=== PATIENT | female | born 1965 | race Caucasian/White ===

== ENCOUNTER 2018-05-05 19:13 | Emergency (ER) | payer BC ==
--- OUTSIDE RECORDS SUMMARY | 2018-05-05 19:24 | XMS REPORT ---
:1965 External Reference #:[id number] Demographics Address [birth year][address] [address] Home Phone [phone] Email Address Preferred Language Marshallese Marital Status Declined to Specify/Unknown Mandaen Affiliation Unknown Race White Ethnic Group Declined to Specify/Unknown Author Organization [facility] Address [address], [address] [place] [address] Phone [phone] Care Team Providers Name Role Phone Dalia Fitzgerald PA Care Team Information Bed Placement Coordinator Unavailable Dalia Fitzgerald PA Primary Care Physician Unavailable Payers Type Date Identification Numbers Payment Provider Subscriber Commercial Policy Number: [id number] [facility] Loida Sanz PayID: [id number] [address] [place] [address] Problems Date Description Provider Status Onset: 03/09/2018 Anxiety state DUARN Rothman Active Family History Date Family Member(s) Problem(s) Comments Father Heart Disease : (age 85 Father due to Cancer Years) Father Arthritis Father Gout Mother Anxiety : (age 89 Mother due to Heart Disease Years) Mother Hypertension Mother Heart Disease : (age 45 Paternal Grandfather due to Heart Disease Years) : (age 90 Paternal Grandmother due to Natural Causes Years) : (age 50 Maternal Grandfather due to Heart Attack Years) Maternal Grandmother Diabetes : (age 85 Maternal Grandmother due to Natural Causes Years) Social History Type Date Description Comments Lives With Alone Diet Healthy, Well Balanced Occupation Currently Working [employer] ADL's/IADL's Independent with all ADL's Cigarette Use Former Cigarette Smoker Quit December 2016, most recently. ETOH Use Currently consumes alcohol socially Smoking Patient is a former smoker Daily Caffeine Consumes on average 2 cups of regular coffee per day Allergies, Adverse Reactions, Alerts Date Description Reaction Status Severity Comments 03/09/2018 Environmental active 03/09/2018 Sulfa Drugs active 03/09/2018 Shellfish-derived Products active Medications Medication Date Status Form Strength Qnty SIG Indications Ordering Provider Escitalopram Oxalate 04/16/ Active Tablets 10mg 30tabs 1 by 2017 mouth Alexei Clements every day Multivitamin Active 1 po 2017 daily Alexei Clements Alprazolam / Active Tablets 0.25mg TK 1 T Unknown 0000 PO prn Rashida Allergy / Active Tablets 180mg 1 tab Unknown 0000 by mouth every day as needed Vitamin B12 / Active one po Unknown 0000 daily Benadryl / Active Capsules 25mg Unknown 0000 Escitalopram Oxalate / Hx Tablets 5mg tk 1 t - by Alexei Clements mouth d 2018 Methylprednisolone / Hx TBPK 4mg TK Utd Unknown 0000 - 2017 Immunizations CPT Code Status Date Vaccine Lot # U-[id number] Refused 04/16/2018 Influenza,Unspecified Vital Signs Date Vital Result Comment 04/16/2018 BP Systolic 124 mmHg BP Diastolic 79 mmHg Body Temperature 98.3 F Heart Rate 72 /min Respiratory Rate 20 /min Height 62 inches 5'2" Weight 140.25 lb BMI (Body Mass Index) 25.6 kg/m2 BSA (Body Surface Area) 1.64 m2 [place] body weight in kilograms 50 O2 % BldC Oximetry 97 % Ra Pain Level 0 03/09/2018 BP Systolic Sitting Right Arm 112 mmHg BP Diastolic Sitting Right Arm 66 mmHg Body Temperature 98.0 F Heart Rate 69 /min Height 62 inches 5'2" Weight 142.00 lb BMI (Body Mass Index) 26.0 kg/m2 BSA (Body Surface Area) 1.65 m2 [place] body weight in kilograms 50 O2 % BldC Oximetry 98 % Results Test Date Test Result H/L Range Note Urine Dipstick 04/16/2018 Ua Color yellow Yellow Ua Clarity clear Clear Ua Leuko - Negative Ua Nitrite - Negative Ua Urobilinogen 0.2 0.2 - 1.0 E.U./dL Ua Protein - Negative Ua PH 6.5 6.5-7.5 Ua Blood - Negative Ua Specific [place] 1.010 1.010-1.030 Ua Ketones - Negative Ua Bilirubin - Negative Ua Glucose - Negative Urine Dipstick 03/09/2018 Ua Color yellow Yellow Ua Clarity clear Clear Ua Leuko negative Negative Ua Nitrite negative Negative Ua Urobilinogen 0.2 0.2 - 1.0 E.U./dL Ua Protein negative Negative Ua PH 6.5 6.5-7.5 Ua Blood trace Negative Ua Specific [place] 1.005 Low 1.010-1.030 Ua Ketones negative Negative Ua Bilirubin negative Negative Ua Glucose negative Negative Urine Culture 03/09/2018 Urine Culture NO GROWTH: FINAL <SEE NOTE> 1 1 NO GROWTH: FINAL REPORT Procedures Date CPT Code Description Status Comment 07/01/2017 [facility]ammogram Com[facility] [place] Dense breast tissue. Encounters Type Date Location Provider CPT E/M Dx Office Visit 03/09/2018 3:30p [facility] Medicine DURAN Rothman [id number] F41.9 R31.9 R13.10 Plan of Care Future Appointment(s):06/14/2018 7:30 am - DURAN Rothman at [facility]04/16/2018 - Dalia Fitzgerald, PAF41.9 Anxiety disorder, unspecifiedComments :We have increase the Lexapro to 10 mg.Take it for 4 weeks. If you think you need a higher dose at that point, callme. Let's followup in 2 months.Follow up: 2 [id number] Hematuria, [id number] Dysphagia, unspecifiedReferral:Khang Mcmahon MD, OtorhinolaryngologyAllNew Medication:Escitalopram Oxalate 10 mg
[2018-05-05 19:42] VITALS: BP 111/76
--- NOTE | 2018-05-05 20:16 | ED ---
Skin Complaint - HPI Summary HPI Summary: 52 yr old with red rash to periumbilical area and to the right lower abdomen above the inguinal area that is also red. [place] She complains of redness, mild pain and swelling to the skin. No fever or chills. She does not feel sick. - History of Current Complaint Chief Complaint: UCSkin Time Seen by Provider: 05/05/18 19:57 Stated Complaint: SKIN CONCERN Pain Intensity: 3 - Allergy/Home Medications Allergies/Adverse Reactions: Allergies Allergy/AdvReac Type Severity Reaction Status Date / Time amoxicillin Allergy GI Upset Verified 05/05/18 19:39 Sulfa (Sulfonamide Allergy Hives Verified 05/05/18 19:39 Antibiotics) Home Medications: Home Medications Escitalopram Oxalate [Lexapro 10 mg] 10 mg PO DAILY 05/05/18 [History Confirmed 05/05/18] PMH/Surg Hx/FS Hx/Imm Hx - Surgical History Surgery Procedure, Year, and Place: LEFT URETER TRANSPOSITION Infectious Disease History: No Infectious Disease History: Denies: Traveled Outside the [place] in Last 30 Days - Family History Known Family History: Positive: None - Social History Occupation: Employed Full-time Alcohol Use: Daily Substance Use Type: Reports: None Smoking Status (MU): Never Smoked Tobacco Review of Systems Constitutional: Negative Positive: Rash - red rash abdomen around bug bites. All Other Systems Reviewed And Are Negative: Yes Physical Exam Triage Information Reviewed: Yes Vital Signs On Initial Exam: Initial Vitals Temp Pulse Resp BP Pulse Ox 98.3 F 67 16 111/76 100 05/05/18 19:34 05/05/18 19:34 05/05/18 19:34 05/05/18 19:34 05/05/18 19:34 Vital Signs Reviewed: Yes Appearance: Positive: Well-Appearing, No Pain Distress Head/Face: Positive: Normal Head/Face Inspection Eyes: Positive: EOMI ENT: Positive: Normal ENT inspection Neck: Positive: Nontender Respiratory/Lung Sounds: Positive: Clear to Auscultation, Breath Sounds Present Cardiovascular: Positive: RRR. Negative: Murmur Abdomen Description: Positive: Nontender, Other: - There is redness just below the right side umbilicus, and also in the right lower abdominal wall a second patch of redness above the inguinal area. No drainage, No flutuance.. Negative : Distended Musculoskeletal: Positive: Strength/ROM Intact Neurological: Positive: Sensory/Motor Intact, Alert, Oriented to Person Place, Time, CN Intact II-III Psychiatric: Positive: Normal - [place] Coma Scale Best Eye Response: 4 - Spontaneous Best Motor Response: 6 - Obeys Commands Best Verbal Response: 5 - Oriented Coma Scale Total: 15 Diagnostics - Vital Signs Vital Signs Temp Pulse Resp BP Pulse Ox 05/05/18 19:34 98.3 F 67 16 111/76 100 - Laboratory Lab Statement: Any lab studies that have been ordered have been reviewed, and results considered in the medical decision making process. Course/Dx - Course Course Of Treatment: 52 yr old female with cellulitis on abdominal wall that is minor at this point. No abscess. Will cover her with doxycycline. - Diagnoses Provider Diagnoses: Cellulitis of right abdominal wall Discharge - Sign-Out/Discharge Documenting (check all that apply): Patient Departure All imaging exams completed and their final reports reviewed: No Studies - Discharge Plan Condition: Good Disposition: HOME Prescriptions: DOXYcycline CAP(*) [DOXYcycline 100MG CAP(*)] 100 mg PO BID #20 cap Patient Education Materials: Cellulitis (ED) Referrals: Dalia Fitzgerald PA [Primary Care Provider] - 3 Days - Billing Disposition and Condition Condition: GOOD Disposition: Home
== END 2018-05-05 20:23 | disposition home or self-care (01) ==
LOC: UCCORT 19:13
DX: L03.311 Cellulitis of abdominal wall (principal); Z88.3 Allergy status to other anti-infective agents; Z88.2 Allergy status to sulfonamides
CPT/HCPCS: 99212; G0463